=== PATIENT | male | born 1940 | race Caucasian/White ===

== ENCOUNTER 2019-02-01 14:28 | Inpatient (IN) | payer MEDICARE, BC ==
[~2019-02-01] VITALS: Ht 175.3 cm; Wt 81.8 kg
[2019-02-01 15:52] LABS: BASO # 0.1 x10^3/uL (0.0-0.2); BASO % 1 % (0-3); EOS # 0.2 x10^3/uL (0.0-0.7); EOS % 3 % (0-3); HEMATOCRIT 43.2 % (39.0-53.0); HEMOGLOBIN 14.2 g/dL (13.0-17.5); LYMPH # 1.4 x10^3/uL (1.0-4.8); LYMPH % 21 % (24-48); MEAN CORPUSCULAR HEMOGLOBIN 29 pg (25-35); MEAN CORPUSCULAR HGB CONC 33 g/dL (31-37); MEAN CORPUSCULAR VOLUME 88 fL (79-100); MONO # 0.6 x10^3/uL (0.0-1.1); MONO % 9 % (0-9); NEUT # 4.2 x10^3uL (1.8-7.7); NEUT % 66 % (31-73); PLATELET COUNT 166 x10^3/uL (140-400); RED BLOOD COUNT 4.92 x10^6/uL (4.30-5.70); RED CELL DISTRIBUTION WIDTH 14.7 % (11.5-14.5); WHITE BLOOD COUNT 6.4 x10^3/uL (4.0-11.0)
[2019-02-01 16:04] LABS: CALCIUM 9.3 mg/dL (8.5-10.1); CREATININE 1.6 mg/dL (0.7-1.3); MAGNESIUM 1.9 mg/dL (1.8-2.4); POTASSIUM 4.2 mmol/L (3.5-5.1); TOTAL BILIRUBIN 0.4 mg/dL (0.2-1.0); TOTAL PROTEIN 8.1 g/dL (6.4-8.2)
--- NOTE | 2019-02-01 16:12 | PHYS DOC ---
Past History Past Medical History: Dementia, GERD, High Cholesterol, Hypertension, Stroke Past Surgical History: No Surgical History Alcohol Use: None Drug Use: None Adult General Chief Complaint Chief Complaint: ALTERED MENTAL STATUS [facility] HPI Patient is a 78 year old male who presents with his to the emergency department for evaluation of altered mental status. The patient is a very poor historian. Noted history of Alzheimer's dementia. Was brought to the emergency department by his for concerns of increased aggressive behavior. notes that the patient has been more aggressive and agitated which has been worsening over the past 3 weeks. Denies any recent fall or trauma but does not the patient has had history of spontaneous intracranial hemorrhage. Was treated at [facility] In July 2018. The patient is oriented only to self. He is unable to identify his under their appropriate relationship, but rather states that she is his sister. Patient follows with Dr. Crain for primary care. states that they have talked to both Dr. Crain and social work who recommended that the patient consider admission to the senior behavioral health unit here at [facility]. At this time states that they have not contacted anyone at the facility regarding admission. She states that the patient is very a ggressive at home and she feels that he does need to be admitted for inpatient psychiatric care. The patient denies any somatic complaints at this time. Review of Systems Review of Systems Caveat: Patient demented and very poor historian Constitutional: Denies fever or chills [] Eyes: Denies change in visual acuity, redness, or eye pain [] HENT: Denies nasal congestion or sore throat [] Respiratory: Denies cough or shortness of breath [] Cardiovascular: No additional information not addressed in HPI [] GI: Denies abdominal pain, nausea, vomiting, bloody stools or diarrhea [] : Denies dysuria or hematuria [] Musculoskeletal: Denies back pain or joint pain [] Integument: Denies rash or skin lesions [] Neurologic: Denies headache, focal weakness or sensory changes [] All other systems were reviewed and found to be within normal limits, except as documented in this note. Allergies Allergies Allergies Coded Allergies Type Severity Reaction Last Updated Verified No Known Drug Allergies 02/01/19 No Physical Exam Physical Exam Constitutional: Alert, afebrile, appears anxious but cooperative. [] HENT: Normocephalic, atraumatic, bilateral external ears normal, oropharynx moist, no oral exudates, nose normal. [] Eyes: PERRLA, EOMI, conjunctiva normal, no discharge. [] Neck: Normal range of motion, no tenderness, supple, no stridor. [] Cardiovascular:Heart rate regular rhythm, no murmur [] Lungs & Thorax: Bilateral breath sounds clear to auscultation [] Abdomen: Bowel sounds normal, soft, no tenderness, no masses, no pulsatile masses. [] Skin: Warm, dry, no erythema, no rash. [] Back: No tenderness, no CVA tenderness. [] Extremities: No tenderness, no cyanosis, no clubbing, ROM intact, no edema. [] Neurologic: Alert and oriented to person only, normal motor function, normal sensory function, no focal deficits noted. [] Current Patient Data Vital Signs Vital Signs Date Time Temp Pulse Resp B/P (MAP) Pulse Ox O2 Delivery O2 Flow Rate FiO2 02/01/19 14:45 97.5 83 20 94 Room Air Lab Results Laboratory Tests Test 02/01/19 15:30 White Blood Count 6.4 x10^3/uL (4.0-11.0) Red Blood Count 4.92 x10^6/uL (4.30-5.70) Hemoglobin 14.2 g/dL (13.0-17.5) Hematocrit 43.2 % (39.0-53.0) Mean Corpuscular Volume 88 fL (79-100) Mean Corpuscular Hemoglobin 29 pg (25-35) Mean Corpuscular Hemoglobin Concent 33 g/dL (31-37) Red Cell Distribution Width 14.7 % (11.5-14.5) H Platelet Count 166 x10^3/uL (140-400) Neutrophils (%) (Auto) 66 % (31-73) Lymphocytes (%) (Auto) 21 % (24-48) L Monocytes (%) (Auto) 9 % (0-9) Eosinophils (%) (Auto) 3 % (0-3) Basophils (%) (Auto) 1 % (0-3) Neutrophils # (Auto) 4.2 x10^3uL (1.8-7.7) Lymphocytes # (Auto) 1.4 x10^3/uL (1.0-4.8) Monocytes # (Auto) 0.6 x10^3/uL (0.0-1.1) Eosinophils # (Auto) 0.2 x10^3/uL (0.0-0.7) Basophils # (Auto) 0.1 x10^3/uL (0.0-0.2) Sodium Level 142 mmol/L (136-145) Potassium Level 4.2 mmol/L (3.5-5.1) Chloride Level 103 mmol/L (98-107) Carbon Dioxide Level 28 mmol/L (21-32) Anion Gap 11 (6-14) Blood Urea Nitrogen 26 mg/dL (8-26) Creatinine 1.6 mg/dL (0.7-1.3) H Estimated GFR (Cockcroft-Gault) 42.0 BUN/Creatinine Ratio 16 (6-20) Glucose Level 135 mg/dL (70-99) H Calcium Level 9.3 mg/dL (8.5-10.1) Magnesium Level 1.9 mg/dL (1.8-2.4) Total Bilirubin 0.4 mg/dL (0.2-1.0) Aspartate Amino Transferase (AST) 15 U/L (15-37) Alanine Aminotransferase (ALT) 21 U/L (16-63) Alkaline Phosphatase 87 U/L (46-116) Total Protein 8.1 g/dL (6.4-8.2) Albumin 4.0 g/dL (3.4-5.0) Albumin/Globulin Ratio 1.0 (1.0-1.7) EKG EKG Interpreted by me: Heart rate 69, sinus rhythm, normal intervals, no acute ST/T- wave abnormalities present[] Radiology/Procedures Radiology/[place] [address] IMAGING REPORT Signed PATIENT: KHAI WALLS ACCOUNT: [id number] : 1940 LOCATION: ER AGE: 78 SEX: M EXAM STATUS: REG ER ORD. PHYSICIAN: MINESH WILLSON MD REASON: history of spontaneous ICH, altered mental status PROCEDURE: CT HEAD WO CONTRAST PQRS Compliance Statement: One or more of the following individualized dose reduction techniques were utilized for this examination: 1. Automated exposure control 2. Adjustment of the mA and/or kV according to patient size 3. Use of iterative reconstruction technique CT head without contrast 02/01/2019 3:42 PM INDICATION: History of spontaneous intracranial hemorrhage. Altered mental status COMPARISON: None available TECHNIQUE: Multiple axial CT images of the head were obtained from skull base through the vertex without intravenous contrast. FINDINGS: Head: Ventricles, sulci and basal cisterns are prominent compatible with mild generalized cerebral volume loss. Low-attenuation in the periventricular white matter is suggestive of chronic small vessel ischemic changes. Remote ischemic changes are identified in the medial left occipital lobe with associated encephalomalacia. There is a dilated perivascular space in inferior left basal ganglia. There is no hydrocephalus. Buckner-white matter differentiation is normal. There is no acute intracranial hemorrhage. There is no mass, mass effect or midline shift. Posterior fossa is normal in appearance. Visualized portions of the orbits are normal. Mild mucosal thickening involving the left ethmoid air cells. Mastoid air cells are well aerated. Scalp and calvaria are normal. IMPRESSION: No acute intracranial hemorrhage. Remote ischemic changes are identified in the medial left occipital lobe. Mild generalized vertebral volume loss. Low-attenuation in the periventricular white matter is suggestive of chronic small vessel ischemic changes. Electronically signed by: Ann-Marie Travis MD (02/01/2019 4:11 PM) [facility] DICTATED AND SIGNED BY: ANN-MARIE TRAVIS MD DATE: 02/01/19 1611 CC: MINESH WILLSON MD; STEFF CRAIN MD ~ [] Course & Med Decision Making Course & Med Decision Making Pertinent Labs and Imaging studies reviewed. (See chart for details) Patient medically cleared for psychiatric evaluation. At time of sign out, the patient is currently undergoing evaluation a telemetry psychiatry. Care of patient signed out to Dr. Alvarez at 1811.[] Dragon Disclaimer Dragon Disclaimer This electronic medical record was generated, in whole or in part, using a voice recognition dictation system. Departure Departure: Impression: Primary Impression: Alzheimer's dementia Disposition: 01 HOME/RESIDENCE PRIOR TO ADM Condition: STABLE Referrals: STEFF CRAIN MD (PCP) Problem Qualifiers Primary Impression: Alzheimer's dementia Alzheimer's disease onset: unspecified onset Dementia behavioral disturbance: with behavioral disturbance Qualified Codes: G30.9 - Alzheimer's disease, unspecified; F02.81 - Dementia in other diseases classified elsewhere with behavioral disturbance MINESH WILLSON MD Feb 01, 2019 16:12
--- NOTE | 2019-02-01 18:43 | EKG ---
[address] [address] Test Date: 2019-02-01 Test Time: 14:45:19 Pat Name: KHAI WALLS Department: Room: Gender: M Junior Business Analyst: : 1940 Requested By: MINESH WILLSON Order Number: [id number] Reading MD: Keshawn Dunlap MD Measurements Intervals [place] Rate: 69 P: 36 IN: 198 QRS: 5 QRSD: 82 T: 28 QT: 370 QTc: 398 Interpretive Statements SINUS RHYTHM Electronically Signed On 02-15-2019 0:38:38 CDT by Keshawn Dunlap MD
[2019-02-01 18:46] LABS: BILIRUBIN,URINE NEG (NEG); CLARITY,URINE CLEAR; COLOR,URINE YELLOW; GLUCOSE,URINE NEG (NEG); NITRITE,URINE NEG (NEG); RBC,URINE 0 /HPF (0-2); UROBILINOGEN,URINE 0.2 mg/dL (0.2 mg/dL)
[2019-02-01 18:47] LABS: BACTERIA,URINE 0 /HPF (0-FEW); WBC,URINE RARE /HPF (0-4)
[2019-02-01 21:37] VITALS: BP 193/78
[2019-02-01] MEDS ORDERED: AMLO5TAB10 PO (22:23)
[2019-02-01] MEDS ORDERED: LEVE500T56 PO (22:23)
[2019-02-01] MEDS ORDERED: DONE10TA7 PO (22:23)
[2019-02-01] MEDS ORDERED: OMEP40CA5 PO (22:23)
[2019-02-01] MEDS ORDERED: LOSA50TA86 PO (22:23)
[2019-02-01] MEDS ORDERED: MEMA10TA PO (22:23)
[2019-02-01] MEDS ORDERED: ATOR10TA60 PO (22:23)
[2019-02-01] MEDS ORDERED: MAGNESIUM HYDROXIDE 2,400 MG/30 ML ORAL.SUSP. PO PRN (22:30)
[2019-02-01] MEDS ORDERED: METHYL SALICYLATE/MENTHOL TOPICAL OINTMENT 29GM TUBE. TP PRN (22:30)
[2019-02-01] MEDS ORDERED: MAG HYDROX/AL HYDROX/SIMETH 30 ML ORAL.SUSP PO PRN (22:30)
[2019-02-01] MEDS ORDERED: ACETAMINOPHEN 325 MG TABLET PO PRN (22:30)
[2019-02-02 06:10] VITALS: BP 129/77
[2019-02-02] MEDS: levETIRAcetam 500 MG TABLET PO SCH ×2 (08:51→20:15)
[2019-02-02] MEDS: amLODIPine BESYLATE 5 MG TABLET PO SCH (08:51)
[2019-02-02] MEDS: DONEPEZIL HCL 10 MG TABLET PO SCH (08:52)
[2019-02-02] MEDS: LOSARTAN 50 MG TABLET. PO SCH (08:52)
[2019-02-02] MEDS: MEMANTINE 10 MG TABLET. PO SCH ×2 (08:52→20:15)
[2019-02-02] MEDS: PANTOPRAZOLE 40 MG TABLET. PO SCH ×2 (08:52→20:15)
[2019-02-02 16:09] VITALS: BP 132/78
[2019-02-02 16:27] LABS: THYROID STIM HORMONE (TSH) 2.625 uIU/mL (0.358-3.740)
[2019-02-02 20:07] LABS: THYROXINE 7.2 ug/dL (4.5-12.0)
[2019-02-02] MEDS: ATORVASTATIN CALCIUM 10 MG TABLET. PO SCH (20:15)
--- NOTE | 2019-02-02 22:25 | PDOC ---
Exam Note: Derick Note: Please also refer to the separate dictated note~for this date of service dictated separately.~Patient seen individually. Discussed the patient with Nursing staff reviewed the chart.~Reviewed interim history and current functioning. Reviewed vital signs,~Labs/ Radiology~and current medications noted below. Continue current treatment with the changes noted in the dictated addendum note Assessment: Vital Signs/I&O: Vital Signs Date Time Temp Pulse Resp B/P (MAP) Pulse Ox O2 Delivery O2 Flow Rate FiO2 02/02/19 16:09 97.3 88 18 132/78 (96) 95 02/02/19 06:10 Room Air Current Medications: Meds: Current Medications Medications (Trade) Dose Ordered Sig/Zachary Route PRN Reason Start Time Stop Time Status Last Admin Dose Admin Amlodipine Besylate (Norvasc) 5 mg DAILY PO 02/02/19 09:00 02/02/19 08:52 Atorvastatin Calcium (Lipitor) 10 mg QHS PO 02/02/19 21:00 02/02/19 20:16 Donepezil HCl (Aricept) 10 mg DAILY PO 02/02/19 09:00 02/02/19 08:52 Levetiracetam (Keppra) 500 mg BID PO 02/02/19 09:00 02/02/19 20:16 Losartan Potassium (Cozaar) 50 mg DAILY PO 02/02/19 09:00 02/02/19 08:52 Memantine (Namenda) 10 mg BID PO 02/02/19 09:00 02/02/19 20:16 Pantoprazole Sodium (Protonix) 40 mg BID PO 02/02/19 09:00 02/02/19 20:16 I have reviewed the current psychotropics carefully including drug interactions. Risk benefit ratio favors no change other than as noted in my dictated progress note. Diagnosis: Problems: (1) Anxiety disorder (2) Dementia in Alzheimer's disease with delusions (3) Dementia in Alzheimer's disease with depression (4) Dementia, vascular, with delusions (5) Dementia, vascular, with depression (6) Impulse control disorder JANIA GUZMÁN MD Feb 02, 2019 22:25
[2019-02-03 02:07] LABS: HEMOGLOBIN A1C 6.1 % (4.8-5.6)
[2019-02-03 05:58] VITALS: BP 144/80
[2019-02-03] MEDS: DONEPEZIL HCL 10 MG TABLET PO SCH (07:45)
[2019-02-03] MEDS: MEMANTINE 10 MG TABLET. PO SCH (07:46)
[2019-02-03] MEDS: amLODIPine BESYLATE 5 MG TABLET PO SCH (07:46)
[2019-02-03] MEDS: LOSARTAN 50 MG TABLET. PO SCH (07:46)
[2019-02-03] MEDS: PANTOPRAZOLE 40 MG TABLET. PO SCH ×2 (07:47→20:40)
[2019-02-03] MEDS: levETIRAcetam 500 MG TABLET PO SCH ×2 (07:47→20:40)
--- NOTE | 2019-02-03 10:54 | HP ---
ADMIT DATE: 02/01/2019 ADMISSION HISTORY AND EVALUATION This is a late entry, date of service 02/02/2019, covers elements not covered in my initial note 02/02/2019. SUBJECTIVE: I met with the patient evening of 02/02/2019 and previously discussed with nursing staff on 02/01/2019 after the patient presented to the Emergency Room with family on account of increased aggression within the context of his dementia. He had threatened to kill the respite care helpers. The was no longer able to take care of him, felt extremely unsafe of her own safety and brought him to the ER. He was evaluated and then referred for inpatient psychiatric stabilization, I believe following a tele psychiatry consultation. CHIEF COMPLAINT: "No." The patient is extremely confused, oriented just to himself, not able to give me a very coherent history and I had to gather all of this from conversation with nursing staff, his current and past records. HISTORY OF PRESENT ILLNESS: The patient has a history of dementia, probably Alzheimer, vascular, status post CVA. He has been living at home with his with respite care helpers assisting. He has been more paranoid, delusional, aggressive, more so for the past several weeks, but much worse within the last 24-48 hours. Behaviors have been dangerous, unmanageable, resulting in this referral. He has had sleep and appetite changes. No clear history of bipolar disorder. PAST PSYCHIATRIC HISTORY: As above. MEDICAL HISTORY: Status post CVA, seizure disorder, hypertension, hyperlipidemia. ACCU-CHEKS: None. DIET: Regular. Takes medications whole. Ambulates up ad sukhdeep. UA negative in the ER. CODE STATUS: Full code. DRUG ALLERGIES: Negative. CURRENT PSYCHOTROPICS: Namenda 10 mg b.i.d., Aricept 10 mg a day, Keppra 500 mg b.i.d., Zyprexa p.r.n. FAMILY HISTORY: Noncontributory. SOCIAL HISTORY: No history of alcohol, drug abuse, physical, sexual or elder abuse. He is not known to be a perpetrator. REACTION TO HOSPITALIZATION: The patient oblivious of this. ASSETS: Supportive family. REVIEW OF SYSTEMS: No CV, , pulmonary, eye, ENT system symptoms on review. Reliability poor. MENTAL STATUS EXAMINATION: Oriented to himself. Insight, judgment, recent and remote memory, attention, concentration, fund of knowledge poor, consistent with his diagnosis. IMPRESSION: Major neurocognitive disorder, probably vascular, Alzheimer's with delusion, depression, behavioral disturbance; anxiety disorder, unspecified; impulse control disorder, unspecified. Rest diagnoses as noted above. PLAN: Admit to Gerops[facility]iatry Unit at [facility]. I will see the patient daily individually from a psychiatric standpoint. Medical followup with Dr. Prajapati. Continue the patient on his current psychotropics. Observe baseline. Consider tapering and stopping the Keppra since this could worsen his agitation and substituting it with Depakote. We will have a Neurology consult with Dr. Griggs as indicated. Further changes will be made post baseline assessment. Estimated length of stay 10-12 days. DISPOSITION: Plans to jail [facility] when stable. MAN Aryan GUZMÁN MD DR: ZAIRA/joe JOB#: [id number] / [id number]
[2019-02-03 15:59] VITALS: BP 148/82
[2019-02-03] MEDS: CHOLECALCIFEROL (VITAMIN D3) 50,000 UNIT CAPSULE PO SCH (20:39)
[2019-02-03] MEDS: ATORVASTATIN CALCIUM 10 MG TABLET. PO SCH (20:40)
--- NOTE | 2019-02-03 22:12 | PDOC ---
Exam Note: Derick Note: Please also refer to the separate dictated note~for this date of service dictated separately.~Patient seen individually. Discussed the patient with Nursing staff reviewed the chart.~Reviewed interim history and current functioning. Reviewed vital signs,~Labs/ Radiology~and current medications noted below. Continue current treatment with the changes noted in the dictated addendum note Assessment: Vital Signs/I&O: Vital Signs Date Time Temp Pulse Resp B/P (MAP) Pulse Ox O2 Delivery O2 Flow Rate FiO2 02/03/19 15:59 97.4 92 18 148/82 (104) 96 Room Air I & O 02/02/19 02/02/19 02/03/19 14:59 22:59 06:59 Intake Total 960 ml 240 ml 120 ml Balance 960 ml 240 ml 120 ml Current Medications: Meds: Current Medications Medications (Trade) Dose Ordered Sig/Zachary Route PRN Reason Start Time Stop Time Status Last Admin Dose Admin Vitamin D (Vitamin D3) 50,000 unit WEEKLY PO 02/03/19 18:30 02/03/19 20:41 I have reviewed the current psychotropics carefully including drug interactions. Risk benefit ratio favors no change other than as noted in my dictated progress note. Diagnosis: Problems: (1) Anxiety disorder (2) Dementia in Alzheimer's disease with delusions (3) Dementia in Alzheimer's disease with depression (4) Dementia, vascular, with delusions (5) Dementia, vascular, with depression (6) Impulse control disorder JANIA GUZMÁN MD Feb 03, 2019 22:12
--- NOTE | 2019-02-04 03:55 | CONS ---
DATE OF CONSULTATION: REASON FOR CONSULTATION: Medical management. HISTORY OF PRESENT ILLNESS: The patient is a 78-year-old male patient who presented to the Emergency Room with the family on account of increased aggression within the context of his dementia. He apparently threatened to kill the respite care helpers and and his was no longer able to take care of him, felt extremely unsafe for her safety and he was brought to the Emergency Room. He was evaluated and as he was medically stable, he was admitted for inpatient psychiatric stabilization. When I questioned him this afternoon, he stated that things are not going well for him, but he could not be more specific. PAST MEDICAL HISTORY: Significant for cerebrovascular accident, seizure disorder, hypertension, hyperlipidemia. PAST PSYCHIATRIC HISTORY: Significant for dementia, probably Alzheimer, vascular, status post CVA. He apparently has been living at home with his with respite care helpers assisting. He has been more paranoid, delusional, aggressive, worse over the past several weeks, but much worse within the last 24-48 hours. As his behavior is dangerous, unmanageable, he was admitted to this unit for inpatient psychiatric stabilization. PAST SURGICAL HISTORY: Unremarkable. ALLERGIES: He has no known drug allergies. MEDICATIONS: He is currently on the following medications: He is on Aricept 10 mg once a day, atorvastatin calcium 10 mg at bedtime, amlodipine besylate 5 mg daily. He is on losartan potassium 50 mg once a day, levetiracetam for Keppra 500 mg twice a day. He is also on Namenda 10 mg twice a day, omeprazole 40 mg twice a day. PHYSICAL EXAMINATION: GENERAL: When I saw him this afternoon, he was sitting in his chair comfortably, in no apparent distress. He has episodes of shaking and tremulousness; however, he was pale, but no jaundice, cyanosis or thyromegaly. No jugular venous distention. No limb edema. VITAL SIGNS: Her heart rate was 92, blood pressure 148/82, temperature was 97.4, respiratory rate was 18 and oxygen saturation was 96%. HEAD, EYES, EARS, NOSE AND THROAT: Showed normocephalic, atraumatic. NECK: Supple. HEART: Showed normal first and second heart sounds with no gallop, rub or murmur. CHEST: Clear to auscultation. No crepitation or rhonchi. ABDOMEN: Distended, soft, nontender. NEUROLOGIC: He was demented, but without any obvious lateralizing sign. He was able to ambulate without assistance or assistive devices, although he has what seemed to be tremors that are not constant. LABORATORY DATA: Showed a white cell count of 6400, hemoglobin 14, hematocrit 43, MCV 88 and platelet count of 166,000. His chemistry showed a serum sodium 142, potassium 4.2, chloride 103, bicarbonate 28, anion gap of 11, BUN 26, creatinine 1.6, estimated GFR was 42 mL per minute. His glucose was 135. His hemoglobin A1c was 6.1%. Calcium was 9.3, magnesium was 1.9. Total bilirubin, AST, ALT, alkaline phosphatase were normal. Total protein was 8.1 and albumin was 4. His serum triglycerides were 363, cholesterol 133, LDL was 26, VLDL was 72, HDL cholesterol was 35 and the ratio was 3. His TSH was normal at 2.625, and total T4 and total T3 were within normal ranges. His 25-hydroxyvitamin D was low and his serum iron was 49, TIBC was 264 and iron saturation was 19%. His urinalysis showed the urine was yellow, clear with a pH of 5.5, specific gravity 1.010. The urine was negative for protein, glucose, ketones. There was trace of blood, negative for nitrites and bilirubin, was negative for leukocyte esterase, 0 rbc's, rare wbc's, and no bacteria. His treponema pallidum antibodies were nonreactive. His CT scan of the head showed that the patient's ventricles and sulci and basal cisterns are prominent compatible with mild generalized cerebral volume loss, low attenuation in the periventricular white matter is suggestive of chronic small vessel ischemic changes, remote ischemic changes are identified in the medial left occipital lobe with associated encephalomalacia. There is a dilated perivascular space in the inferior left basal ganglia. There is no hydrocephalus. Buckner-white matter differentiation is normal. There is no acute intracranial hemorrhage, no mass or mass effect or midline shift. His posterior fossa is normal in appearance. Visualized portions of the orbits are normal. He has mild mucosal thickening involving the left ethmoid air cells. Mastoid air cells are well aerated. Scalp and calvaria are normal. SUMMARY: From a medical point of view, the patient has obesity, hypertension, hyperlipidemia, also has chronic kidney disease and vitamin D deficiency. His serum creatinine is 1.6. All in all, the patient seems to be medically stable. He has just some form of tremors or myoclonic jerks that are irregular and sporadic. PLAN: My plan is to consult Dr. Griggs to see if this represents any perhaps like Creutzfeldt-Km disease. We will continue obviously with all his medications. We will follow his labs closely and make any necessary recommendation. Thank you, Dr. Marei for allowing me to participate in the care of this patient. KALPANA TAYLOR MD DR: SIDDHARTHA/joe JOB#: [id number] / [id number]
[2019-02-04 06:25] VITALS: BP 159/86
[2019-02-04] MEDS: PANTOPRAZOLE 40 MG TABLET. PO SCH ×2 (08:04→20:26)
[2019-02-04] MEDS: LOSARTAN 50 MG TABLET. PO SCH (08:05)
[2019-02-04] MEDS: levETIRAcetam 500 MG TABLET PO SCH ×2 (08:05→20:26)
[2019-02-04] MEDS: amLODIPine BESYLATE 5 MG TABLET PO SCH (08:06)
[2019-02-04] MEDS: SERTRALINE 25 MG TABLET. PO SCH (08:07)
[2019-02-04 16:30] VITALS: BP 110/63
[2019-02-04] MEDS: ATORVASTATIN CALCIUM 10 MG TABLET. PO SCH (20:26)
--- NOTE | 2019-02-04 23:08 | PDOC ---
Exam Note: Derick Note: Please also refer to the separate dictated note~for this date of service dictated separately.~Patient seen individually. Discussed the patient with Nursing staff reviewed the chart.~Reviewed interim history and current functioning. Reviewed vital signs,~Labs/ Radiology~and current medications noted below. Continue current treatment with the changes noted in the dictated addendum note Assessment: Vital Signs/I&O: Vital Signs Date Time Temp Pulse Resp B/P (MAP) Pulse Ox O2 Delivery O2 Flow Rate FiO2 02/04/19 16:30 98.4 69 16 110/63 (79) 95 02/04/19 06:25 Room Air I & O 02/03/19 02/03/19 02/04/19 15:00 23:00 07:00 Intake Total 960 ml 360 ml Balance 960 ml 360 ml Current Medications: Meds: Current Medications Medications (Trade) Dose Ordered Sig/Zachary Route PRN Reason Start Time Stop Time Status Last Admin Dose Admin Sertraline HCl (Zoloft) 25 mg DAILY PO 02/04/19 09:00 02/07/19 08:59 02/04/19 08:07 I have reviewed the current psychotropics carefully including drug interactions. Risk benefit ratio favors no change other than as noted in my dictated progress note. Diagnosis: Problems: (1) Anxiety disorder (2) Dementia in Alzheimer's disease with delusions (3) Dementia in Alzheimer's disease with depression (4) Dementia, vascular, with delusions (5) Dementia, vascular, with depression (6) Impulse control disorder JANIA GUZMÁN MD Feb 04, 2019 23:08
[2019-02-05 05:58] VITALS: BP 135/79
[2019-02-05] MEDS: LOSARTAN 50 MG TABLET. PO SCH (07:44)
[2019-02-05] MEDS: levETIRAcetam 500 MG TABLET PO SCH ×2 (07:45→19:44)
[2019-02-05] MEDS: amLODIPine BESYLATE 5 MG TABLET PO SCH (07:45)
[2019-02-05] MEDS: PANTOPRAZOLE 40 MG TABLET. PO SCH ×2 (07:45→19:44)
[2019-02-05] MEDS: SERTRALINE 25 MG TABLET. PO SCH (07:45)
[2019-02-05 16:24] VITALS: BP 127/68
[2019-02-05] MEDS: ATORVASTATIN CALCIUM 10 MG TABLET. PO SCH (19:44)
--- NOTE | 2019-02-05 22:28 | PDOC ---
Exam Note: Derick Note: Please also refer to the separate dictated note~for this date of service dictated separately.~Patient seen individually. Discussed the patient with Nursing staff reviewed the chart.~Reviewed interim history and current functioning. Reviewed vital signs,~Labs/ Radiology~and current medications noted below. Continue current treatment with the changes noted in the dictated addendum note Assessment: Vital Signs/I&O: Vital Signs Date Time Temp Pulse Resp B/P (MAP) Pulse Ox O2 Delivery O2 Flow Rate FiO2 02/05/19 16:24 97.4 80 18 127/68 (87) 96 02/05/19 05:58 Room Air I & O 02/04/19 02/04/19 02/05/19 15:00 23:00 07:00 Intake Total 720 ml 240 ml Balance 720 ml 240 ml Current Medications: I have reviewed the current psychotropics carefully including drug interactions. Risk benefit ratio favors no change other than as noted in my dictated progress note. Diagnosis: Problems: (1) Anxiety disorder (2) Dementia in Alzheimer's disease with delusions (3) Dementia in Alzheimer's disease with depression (4) Dementia, vascular, with delusions (5) Dementia, vascular, with depression (6) Impulse control disorder JANIA GUZMÁN MD Feb 05, 2019 22:28
--- NOTE | 2019-02-06 01:46 | PN ---
DATE: 02/03/2019 PSYCHIATRIC PROGRESS NOTE This late entry 02/03/2019 covers elements not covered in my initial note. SUBJECTIVE: I met with the patient in the evening of 02/03/2019. The patient slept 7-1/2 hours previous night. He is disorganized, compliant with medications, not agitated. He is nevertheless anxious, restless, but redirectable. REVIEW OF SYSTEMS: No CV, , pulmonary, eye, ENT system symptoms on review. Reliability poor. MENTAL STATUS EXAM: Oriented to himself. Insight, judgment, recent and remote memory, attention, concentration, fund of knowledge poor, consistent with his diagnosis mentioned in my initial note. PLAN: Continue current psychotropics. At this stage of his dementia, Aricept and Namenda have probably very limited benefits and we will stop it. We will start Zoloft 25 mg a day, increasing in 3 days to 50 mg a day. Maintain Zyprexa p.r.n., consider tapering the Keppra at some point since it could be increasing his agitation. If needed, we will substitute with Depakote. We will initially make the changes with the Namenda, Aricept, and Zoloft and then decide in a few days. JANIA GUZMÁN MD DR: ZAIRA/joe JOB#: [id number] / [id number]
[2019-02-06 05:41] VITALS: BP 121/70
[2019-02-06] MEDS: levETIRAcetam 500 MG TABLET PO SCH ×2 (09:17→21:15)
[2019-02-06] MEDS: SERTRALINE 25 MG TABLET. PO SCH (09:17)
[2019-02-06] MEDS: PANTOPRAZOLE 40 MG TABLET. PO SCH ×2 (09:17→21:16)
[2019-02-06] MEDS: amLODIPine BESYLATE 5 MG TABLET PO SCH (09:18)
[2019-02-06] MEDS: LOSARTAN 50 MG TABLET. PO SCH (09:18)
[2019-02-06 16:06] VITALS: BP 102/50
[2019-02-06] MEDS: ATORVASTATIN CALCIUM 10 MG TABLET. PO SCH (21:15)
--- NOTE | 2019-02-07 00:51 | PN ---
DATE: 02/05/2019 PSYCHIATRIC PROGRESS NOTE This late entry, 02/05, covers elements not covered in my initial note. SUBJECTIVE: I met with the patient in the evening of 02/05. The patient slept 6-3/4 hours previous night. He seems to do worse with too much stimuli, but he is not aggressive. REVIEW OF SYSTEMS: No CV, , pulmonary, eye, ENT system symptoms on review. Reliability poor. MENTAL STATUS EXAM: Oriented to himself. Insight, judgment, recent and remote memory, attention, concentration, fund of knowledge poor, consistent with his diagnosis. IMPRESSION: Major neurocognitive disorder; Alzheimer, vascular with delusion; depression; behavioral disturbance; anxiety disorder, unspecified; impulse control disorder, unspecified. PLAN: No change from initial note. Continue current psychotropics. MAN Aryan GUZMÁN MD DR: ZAIRA/joe JOB#: [id number] / [id number]
--- NOTE | 2019-02-07 05:03 | PN ---
DATE: 02/04/2019 PSYCHIATRIC PROGRESS NOTE This late entry 02/04/2019 covers elements not covered in my initial note. SUBJECTIVE: I met with the patient in the evening of 02/04/2019. The patient slept 6-1/2 hours previous night. He has been agitated with shower, had 1 episode of behavioral dyscontrol at that time. Otherwise, wandering, confused, takes medications whole. REVIEW OF SYSTEMS: No CV, , pulmonary, eye, ENT system symptoms on review. Reliability poor. MENTAL STATUS EXAM: Oriented to himself. Insight, judgment, recent and remote memory, attention, concentration, fund of knowledge poor, consistent with his diagnosis mentioned in my initial note. PLAN: No change from initial note. MAN Aryan GUZMÁN MD DR: ZAIRA/joe JOB#: [id number] / [id number]
[2019-02-07 05:42] VITALS: BP 142/74
[2019-02-07] MEDS: PANTOPRAZOLE 40 MG TABLET. PO SCH ×2 (08:04→20:45)
[2019-02-07] MEDS: amLODIPine BESYLATE 5 MG TABLET PO SCH (08:04)
[2019-02-07] MEDS: SERTRALINE 25 MG TABLET. PO SCH (08:05)
[2019-02-07] MEDS: LOSARTAN 50 MG TABLET. PO SCH (08:05)
[2019-02-07] MEDS: levETIRAcetam 500 MG TABLET PO SCH ×2 (08:06→20:45)
--- NOTE | 2019-02-07 08:50 | PDOC ---
Exam Note: Derick Note: Late entry for DOS 02/06/2019. Please also refer to the separate dictated note~for this date of service dictated separately.~Patient seen individually. Discussed the patient with Nursing staff reviewed the chart.~Reviewed interim history and current functioning. Reviewed vital signs,~Labs/ Radiology~and current medications noted below. Continue current treatment with the changes noted in the dictated addendum note Assessment: Vital Signs/I&O: Vital Signs Date Time Temp Pulse Resp B/P (MAP) Pulse Ox O2 Delivery O2 Flow Rate FiO2 02/07/19 08:07 74 142/74 02/07/19 05:42 98.3 18 94 Room Air I & O 02/06/19 02/06/19 02/07/19 14:59 22:59 06:59 Intake Total 600 ml 480 ml 120 ml Balance 600 ml 480 ml 120 ml Current Medications: Meds: Current Medications Medications (Trade) Dose Ordered Sig/Zachary Route PRN Reason Start Time Stop Time Status Last Admin Dose Admin Sertraline HCl (Zoloft) 50 mg DAILY PO 02/07/19 09:00 02/07/19 08:07 I have reviewed the current psychotropics carefully including drug interactions. Risk benefit ratio favors no change other than as noted in my dictated progress note. Diagnosis: Problems: (1) Anxiety disorder (2) Dementia in Alzheimer's disease with delusions (3) Dementia in Alzheimer's disease with depression (4) Dementia, vascular, with delusions (5) Dementia, vascular, with depression (6) Impulse control disorder JANIA GUZMÁN MD Feb 07, 2019 08:50
[2019-02-07 15:43] VITALS: BP 164/69
[2019-02-07] MEDS: ATORVASTATIN CALCIUM 10 MG TABLET. PO SCH (20:45)
--- NOTE | 2019-02-07 22:23 | PDOC ---
Exam Note: Derick Note: Please also refer to the separate dictated note~for this date of service dictated separately.~Patient seen individually. Discussed the patient with Nursing staff reviewed the chart.~Reviewed interim history and current functioning. Reviewed vital signs,~Labs/ Radiology~and current medications noted below. Continue current treatment with the changes noted in the dictated addendum note Assessment: Vital Signs/I&O: Vital Signs Date Time Temp Pulse Resp B/P (MAP) Pulse Ox O2 Delivery O2 Flow Rate FiO2 02/07/19 15:43 97.7 90 20 164/69 (100) 98 Room Air I & O 02/06/19 02/06/19 02/07/19 14:59 22:59 06:59 Intake Total 600 ml 480 ml 120 ml Balance 600 ml 480 ml 120 ml Current Medications: Meds: Current Medications Medications (Trade) Dose Ordered Sig/Zachary Route PRN Reason Start Time Stop Time Status Last Admin Dose Admin Sertraline HCl (Zoloft) 50 mg DAILY PO 02/07/19 09:00 02/10/19 07:00 02/07/19 08:07 I have reviewed the current psychotropics carefully including drug interactions. Risk benefit ratio favors no change other than as noted in my dictated progress note. Diagnosis: Problems: (1) Anxiety disorder (2) Dementia in Alzheimer's disease with delusions (3) Dementia in Alzheimer's disease with depression (4) Dementia, vascular, with delusions (5) Dementia, vascular, with depression (6) Impulse control disorder JANIA GUZMÁN MD Feb 07, 2019 22:23
[2019-02-08 06:27] VITALS: BP 140/72
--- NOTE | 2019-02-08 07:25 | PN ---
DATE: 02/06/2019 This late entry 02/06/2019 covers elements not covered in my initial note. SUBJECTIVE: I met with the patient evening of 02/06/2019. The patient slept 7-3/4 hours previous night. He takes his medications whole per nursing report and has been coming out to the milieu, though he is quite oblivious of his surroundings due to his dementia. He has been "snarky" per nursing report, but did attend the exercise groups. REVIEW OF SYSTEMS: No CV, , pulmonary, eye, ENT system symptoms on review. Reliability poor. MENTAL STATUS EXAM: Oriented to himself. Insight, judgment, recent and remote memory, attention, concentration, fund of knowledge poor, consistent with his diagnosis mentioned in my initial note. IMPRESSION: Major neurocognitive disorder; Alzheimer, vascular with delusion; depression; behavioral disturbance; anxiety disorder, unspecified; impulse control disorder, unspecified. PLAN: Continue psychotropics from initial note. Aricept and Namenda have been stopped. Zoloft is being adjusted. He remains on Keppra and Zyprexa p.r.n. May consider Depakote as a mood stabilizer at some point and that may be able to substitute for Keppra as well from a seizure standpoint. JANIA GUZMÁN MD DR: ZAIRA/joe JOB#: [id number] / [id number]
[2019-02-08] MEDS: LOSARTAN 50 MG TABLET. PO SCH (07:49)
[2019-02-08] MEDS: levETIRAcetam 500 MG TABLET PO SCH ×2 (07:49→20:55)
[2019-02-08] MEDS: SERTRALINE 25 MG TABLET. PO SCH (07:50)
[2019-02-08] MEDS: amLODIPine BESYLATE 5 MG TABLET PO SCH (07:50)
[2019-02-08] MEDS: PANTOPRAZOLE 40 MG TABLET. PO SCH ×2 (07:50→20:55)
[2019-02-08 15:47] VITALS: BP 135/70
[2019-02-08] MEDS: ATORVASTATIN CALCIUM 10 MG TABLET. PO SCH (20:55)
--- NOTE | 2019-02-08 21:55 | PDOC ---
Exam Note: Derick Note: Please also refer to the separate dictated note~for this date of service dictated separately.~Patient seen individually. Discussed the patient with Nursing staff reviewed the chart.~Reviewed interim history and current functioning. Reviewed vital signs,~Labs/ Radiology~and current medications noted below. Continue current treatment with the changes noted in the dictated addendum note Assessment: Vital Signs/I&O: Vital Signs Date Time Temp Pulse Resp B/P (MAP) Pulse Ox O2 Delivery O2 Flow Rate FiO2 02/08/19 15:47 97.1 79 16 135/70 (91) 96 02/07/19 15:43 Room Air I & O 02/07/19 02/07/19 02/08/19 14:59 22:59 06:59 Intake Total 960 ml 240 ml 120 ml Balance 960 ml 240 ml 120 ml Current Medications: I have reviewed the current psychotropics carefully including drug interactions. Risk benefit ratio favors no change other than as noted in my dictated progress note. Diagnosis: Problems: (1) Anxiety disorder (2) Dementia in Alzheimer's disease with delusions (3) Dementia in Alzheimer's disease with depression (4) Dementia, vascular, with delusions (5) Dementia, vascular, with depression (6) Impulse control disorder JANIA GUZMÁN MD Feb 08, 2019 21:55
--- NOTE | 2019-02-09 01:43 | PN ---
DATE: 02/07/2019 This late entry of 02/07/2019 covers elements not covered in my initial note. SUBJECTIVE: I met with the patient in the evening of 02/07/2019. The patient slept 7-1/4 hours previous night. He remains confused, has been cooperative, but confused. He gets a little restless, anxious at times. REVIEW OF SYSTEMS: No CV, , pulmonary, eye, ENT system symptoms on review. Reliability poor. MENTAL STATUS EXAM: Oriented to himself. Insight, judgment, recent and remote memory, attention, concentration, fund of knowledge poor, consistent with his diagnosis as mentioned in my initial note. PLAN: No change from initial note, but after he has been on Zoloft 50 mg a day for 3 days, we will increase to 75 mg a day. Maintain Keppra 500 b.i.d., consider Depakote in place of this if irritability persists. Continue Zyprexa p.r.n. JANIA GUZMÁN MD DR: ZAIRA/joe JOB#: [id number] / [id number]
[2019-02-09 06:09] VITALS: BP 159/79
[2019-02-09 06:33] LABS: BASO # 0.1 x10^3/uL (0.0-0.2); BASO % 1 % (0-3); EOS # 0.3 x10^3/uL (0.0-0.7); EOS % 4 % (0-3); HEMATOCRIT 41.1 % (39.0-53.0); HEMOGLOBIN 13.8 g/dL (13.0-17.5); LYMPH # 1.8 x10^3/uL (1.0-4.8); LYMPH % 25 % (24-48); MEAN CORPUSCULAR HEMOGLOBIN 30 pg (25-35); MEAN CORPUSCULAR HGB CONC 34 g/dL (31-37); MEAN CORPUSCULAR VOLUME 88 fL (79-100); MONO # 0.6 x10^3/uL (0.0-1.1); MONO % 9 % (0-9); NEUT # 4.5 x10^3uL (1.8-7.7); NEUT % 62 % (31-73); PLATELET COUNT 168 x10^3/uL (140-400); RED BLOOD COUNT 4.64 x10^6/uL (4.30-5.70); RED CELL DISTRIBUTION WIDTH 14.8 % (11.5-14.5); WHITE BLOOD COUNT 7.3 x10^3/uL (4.0-11.0)
[2019-02-09 06:46] LABS: ALBUMIN 3.8 g/dL (3.4-5.0); CALCIUM 9.5 mg/dL (8.5-10.1); CREATININE 1.6 mg/dL (0.7-1.3); POTASSIUM 4.1 mmol/L (3.5-5.1); TOTAL BILIRUBIN 0.8 mg/dL (0.2-1.0); TOTAL PROTEIN 7.7 g/dL (6.4-8.2)
[2019-02-09] MEDS: amLODIPine BESYLATE 5 MG TABLET PO SCH (08:30)
[2019-02-09] MEDS: SERTRALINE 25 MG TABLET. PO SCH (08:30)
[2019-02-09] MEDS: PANTOPRAZOLE 40 MG TABLET. PO SCH ×2 (08:30→19:52)
[2019-02-09] MEDS: LOSARTAN 50 MG TABLET. PO SCH (08:30)
[2019-02-09] MEDS: levETIRAcetam 500 MG TABLET PO SCH ×2 (08:31→19:54)
[2019-02-09 15:47] VITALS: BP 136/74
[2019-02-09] MEDS: ATORVASTATIN CALCIUM 10 MG TABLET. PO SCH (19:52)
--- NOTE | 2019-02-09 22:06 | PDOC ---
Exam Note: Derick Note: Please also refer to the separate dictated note~for this date of service dictated separately.~Patient seen individually. Discussed the patient with Nursing staff reviewed the chart.~Reviewed interim history and current functioning. Reviewed vital signs,~Labs/ Radiology~and current medications noted below. Continue current treatment with the changes noted in the dictated addendum note Assessment: Vital Signs/I&O: Vital Signs Date Time Temp Pulse Resp B/P (MAP) Pulse Ox O2 Delivery O2 Flow Rate FiO2 02/09/19 15:47 97.3 92 20 136/74 (94) 94 Room Air I & O 02/08/19 02/08/19 02/09/19 15:00 23:00 07:00 Intake Total 560 ml 240 ml 120 ml Balance 560 ml 240 ml 120 ml Labs: Laboratory Tests Test 02/09/19 06:18 White Blood Count 7.3 x10^3/uL (4.0-11.0) Red Blood Count 4.64 x10^6/uL (4.30-5.70) Hemoglobin 13.8 g/dL (13.0-17.5) Hematocrit 41.1 % (39.0-53.0) Mean Corpuscular Volume 88 fL (79-100) Mean Corpuscular Hemoglobin 30 pg (25-35) Mean Corpuscular Hemoglobin Concent 34 g/dL (31-37) Red Cell Distribution Width 14.8 % (11.5-14.5) H Platelet Count 168 x10^3/uL (140-400) Neutrophils (%) (Auto) 62 % (31-73) Lymphocytes (%) (Auto) 25 % (24-48) Monocytes (%) (Auto) 9 % (0-9) Eosinophils (%) (Auto) 4 % (0-3) H Basophils (%) (Auto) 1 % (0-3) Neutrophils # (Auto) 4.5 x10^3uL (1.8-7.7) Lymphocytes # (Auto) 1.8 x10^3/uL (1.0-4.8) Monocytes # (Auto) 0.6 x10^3/uL (0.0-1.1) Eosinophils # (Auto) 0.3 x10^3/uL (0.0-0.7) Basophils # (Auto) 0.1 x10^3/uL (0.0-0.2) Sodium Level 142 mmol/L (136-145) Potassium Level 4.1 mmol/L (3.5-5.1) Chloride Level 104 mmol/L (98-107) Carbon Dioxide Level 31 mmol/L (21-32) Anion Gap 7 (6-14) Blood Urea Nitrogen 23 mg/dL (8-26) Creatinine 1.6 mg/dL (0.7-1.3) H Estimated GFR (Cockcroft-Gault) 42.0 BUN/Creatinine Ratio 14 (6-20) Glucose Level 105 mg/dL (70-99) H Calcium Level 9.5 mg/dL (8.5-10.1) Total Bilirubin 0.8 mg/dL (0.2-1.0) Aspartate Amino Transferase (AST) 15 U/L (15-37) Alanine Aminotransferase (ALT) 25 U/L (16-63) Alkaline Phosphatase 77 U/L (46-116) Total Protein 7.7 g/dL (6.4-8.2) Albumin 3.8 g/dL (3.4-5.0) Albumin/Globulin Ratio 1.0 (1.0-1.7) Current Medications: I have reviewed the current psychotropics carefully including drug interactions. Risk benefit ratio favors no change other than as noted in my dictated progress note. Diagnosis: Problems: (1) Anxiety disorder (2) Dementia in Alzheimer's disease with delusions (3) Dementia in Alzheimer's disease with depression (4) Dementia, vascular, with delusions (5) Dementia, vascular, with depression (6) Impulse control disorder JANIA GUZMÁN MD Feb 09, 2019 22:06
[2019-02-10 05:21] VITALS: BP 120/72
[2019-02-10] MEDS: PANTOPRAZOLE 40 MG TABLET. PO SCH ×2 (07:51→20:00)
[2019-02-10] MEDS: amLODIPine BESYLATE 5 MG TABLET PO SCH (07:51)
[2019-02-10] MEDS: SERTRALINE 25 MG TABLET. PO SCH (07:52)
[2019-02-10] MEDS: LOSARTAN 50 MG TABLET. PO SCH (07:52)
[2019-02-10] MEDS: levETIRAcetam 500 MG TABLET PO SCH ×2 (07:52→20:00)
[2019-02-10] MEDS: CHOLECALCIFEROL (VITAMIN D3) 50,000 UNIT CAPSULE PO SCH (07:55)
[2019-02-10 15:29] VITALS: BP 124/62
[2019-02-10] MEDS: ATORVASTATIN CALCIUM 10 MG TABLET. PO SCH (20:00)
--- NOTE | 2019-02-10 22:11 | PDOC ---
Exam Note: Derick Note: Please also refer to the separate dictated note~for this date of service dictated separately.~Patient seen individually. Discussed the patient with Nursing staff reviewed the chart.~Reviewed interim history and current functioning. Reviewed vital signs,~Labs/ Radiology~and current medications noted below. Continue current treatment with the changes noted in the dictated addendum note Assessment: Vital Signs/I&O: Vital Signs Date Time Temp Pulse Resp B/P (MAP) Pulse Ox O2 Delivery O2 Flow Rate FiO2 02/10/19 15:29 98.4 66 16 124/62 (82) 95 02/10/19 05:21 Room Air I & O 02/09/19 02/09/19 02/10/19 14:59 22:59 06:59 Intake Total 1200 ml 240 ml 120 ml Balance 1200 ml 240 ml 120 ml Current Medications: Meds: Current Medications Medications (Trade) Dose Ordered Sig/Zachary Route PRN Reason Start Time Stop Time Status Last Admin Dose Admin Sertraline HCl (Zoloft) 75 mg DAILY PO 02/10/19 09:00 02/10/19 07:55 I have reviewed the current psychotropics carefully including drug interactions. Risk benefit ratio favors no change other than as noted in my dictated progress note. Diagnosis: Problems: (1) Anxiety disorder (2) Dementia in Alzheimer's disease with delusions (3) Dementia in Alzheimer's disease with depression (4) Dementia, vascular, with delusions (5) Dementia, vascular, with depression (6) Impulse control disorder JANIA GUZMÁN MD Feb 10, 2019 22:11
--- NOTE | 2019-02-11 00:27 | PN ---
DATE: 02/08/2019 This late entry 02/08/2019 covers elements not covered in my initial note. SUBJECTIVE: I met with the patient in the evening of 02/08/2019. The patient slept 7 hours previous night. He is confused, compliant with medications, but not aggressive. REVIEW OF SYSTEMS: No CV, , pulmonary, eye, ENT system symptoms on review. Reliability poor. MENTAL STATUS EXAM: Oriented to himself. Insight, judgment, recent and remote memory, attention, concentration, fund of knowledge poor, consistent with his diagnosis mentioned in my initial note. PLAN: No change from initial note. MAN Aryan GUZMÁN MD DR: ZAIRA/joe JOB#: [id number] / [id number]
--- NOTE | 2019-02-11 02:00 | PN ---
DATE: 02/09/2019 This late entry, 02/09/2019, covers the elements not covered in my initial note. SUBJECTIVE: I met with the patient in the evening of 02/09/2019, staffed at treatment team meeting with the entire team in the morning. The patient's , Gail, attended the conference. He remains confused, withdrawn, slept 7 hours, appetite 75-100%, tries to sit in groups. He has failed home health services in the past, may need nursing placement, but is still wanting to consider having him home. We reviewed his past history of seizures, which is not entirely confirmatory other than possible one episode and he has been on Keppra 500 b.i.d. for about 2 years. We will consult Dr. Griggs, Neurology to see if Keppra can be tapered and we can substitute with Depakote, which might help him behaviorally as well. REVIEW OF SYSTEMS: No CV, , pulmonary, eye, ENT system symptoms on review. Reliability poor. MENTAL STATUS EXAM: Oriented to himself. Insight, judgment, recent and remote memory, attention, concentration, fund of knowledge poor, consistent with his diagnosis. IMPRESSION: Unchanged from initial note. PLAN: No change from initial note other than above. IMPRESSION: Major neurocognitive disorder, Alzheimer vascular with delusion, depression, behavioral disturbance; anxiety disorder, unspecified; impulse control disorder, unspecified. MAN Aryan GUZMÁN MD DR: ZAIRA/joe JOB#: [id number] / [id number]
[2019-02-11 05:40] VITALS: BP 143/72
[2019-02-11] MEDS: levETIRAcetam 500 MG TABLET PO SCH ×2 (08:09→19:24)
[2019-02-11] MEDS: LOSARTAN 50 MG TABLET. PO SCH (08:09)
[2019-02-11] MEDS: SERTRALINE 25 MG TABLET. PO SCH (08:10)
[2019-02-11] MEDS: PANTOPRAZOLE 40 MG TABLET. PO SCH ×2 (08:10→19:24)
[2019-02-11] MEDS: amLODIPine BESYLATE 5 MG TABLET PO SCH (08:10)
[2019-02-11 15:49] VITALS: BP 121/67
[2019-02-11] MEDS: ATORVASTATIN CALCIUM 10 MG TABLET. PO SCH (19:24)
--- NOTE | 2019-02-11 22:00 | PDOC ---
Exam Note: Derick Note: Please also refer to the separate dictated note~for this date of service dictated separately.~Patient seen individually. Discussed the patient with Nursing staff reviewed the chart.~Reviewed interim history and current functioning. Reviewed vital signs,~Labs/ Radiology~and current medications noted below. Continue current treatment with the changes noted in the dictated addendum note Assessment: Vital Signs/I&O: Vital Signs Date Time Temp Pulse Resp B/P (MAP) Pulse Ox O2 Delivery O2 Flow Rate FiO2 02/11/19 15:49 97.7 63 18 121/67 (85) 94 02/10/19 05:21 Room Air I & O 02/10/19 02/10/19 02/11/19 15:00 23:00 07:00 Intake Total 600 ml 480 ml 120 ml Balance 600 ml 480 ml 120 ml Current Medications: I have reviewed the current psychotropics carefully including drug interactions. Risk benefit ratio favors no change other than as noted in my dictated progress note. Diagnosis: Problems: (1) Anxiety disorder (2) Dementia in Alzheimer's disease with delusions (3) Dementia in Alzheimer's disease with depression (4) Dementia, vascular, with delusions (5) Dementia, vascular, with depression (6) Impulse control disorder JANIA GUZMÁN MD Feb 11, 2019 22:00
[2019-02-12 06:39] VITALS: BP 162/72
[2019-02-12] MEDS: amLODIPine BESYLATE 5 MG TABLET PO SCH (07:47)
[2019-02-12] MEDS: PANTOPRAZOLE 40 MG TABLET. PO SCH ×2 (07:47→21:34)
[2019-02-12] MEDS: levETIRAcetam 500 MG TABLET PO SCH ×2 (07:47→21:34)
[2019-02-12] MEDS: LOSARTAN 50 MG TABLET. PO SCH (07:48)
[2019-02-12] MEDS: SERTRALINE 25 MG TABLET. PO SCH (07:48)
[2019-02-12 16:04] VITALS: BP 138/76
--- NOTE | 2019-02-12 21:04 | PDOC ---
Exam Note: Derick Note: Please also refer to the separate dictated note~for this date of service dictated separately.~Patient seen individually. Discussed the patient with Nursing staff reviewed the chart.~Reviewed interim history and current functioning. Reviewed vital signs,~Labs/ Radiology~and current medications noted below. Continue current treatment with the changes noted in the dictated addendum note Assessment: Vital Signs/I&O: Vital Signs Date Time Temp Pulse Resp B/P (MAP) Pulse Ox O2 Delivery O2 Flow Rate FiO2 02/12/19 16:04 97.8 87 19 138/76 (96) 96 Room Air I & O 02/11/19 02/11/19 02/12/19 14:59 22:59 06:59 Intake Total 480 ml 240 ml 240 ml Balance 480 ml 240 ml 240 ml Current Medications: I have reviewed the current psychotropics carefully including drug interactions. Risk benefit ratio favors no change other than as noted in my dictated progress note. Diagnosis: Problems: (1) Anxiety disorder (2) Dementia in Alzheimer's disease with delusions (3) Dementia in Alzheimer's disease with depression (4) Dementia, vascular, with delusions (5) Dementia, vascular, with depression (6) Impulse control disorder JANIA GUZMÁN MD Feb 12, 2019 21:04
[2019-02-12] MEDS: ATORVASTATIN CALCIUM 10 MG TABLET. PO SCH (21:34)
--- NOTE | 2019-02-13 03:31 | PN ---
DATE: 02/11/2019 PSYCHIATRIC PROGRESS NOTE This late entry 02/11/2019 covers elements not covered in my initial note. SUBJECTIVE: I met with the patient in the evening of 02/11/2019. The patient slept 8-1/4 hours previous night. He remains confused but cooperative, does redirect, takes meds with encouragement. He was watching a football game, [employer] versus the [employer] in the evening and when I questioned him on what he was watching, he was unable to tell me the name of the sport but knew [employer] was playing, did not know the name of the team, was not able to discern the score from the television screen. At one point, he was a little aggressively grabbing the hand of another patient, but not beyond what can be explained by his dementia. REVIEW OF SYSTEMS: No CV, , pulmonary, eye, ENT system symptoms on review. Reliability poor. MENTAL STATUS EXAM: Oriented to himself. Insight, judgment, recent and remote memory, attention, concentration, fund of knowledge poor, consistent with his diagnosis mentioned in my initial note. PLAN: No change from initial note. MAN Aryan GUZMÁN MD DR: ZAIRA/joe JOB#: [id number] / [id number]
[2019-02-13 06:37] VITALS: BP 137/80
[2019-02-13] MEDS: levETIRAcetam 500 MG TABLET PO SCH ×2 (07:23→20:00)
[2019-02-13] MEDS: SERTRALINE 25 MG TABLET. PO SCH (07:23)
[2019-02-13] MEDS: PANTOPRAZOLE 40 MG TABLET. PO SCH ×2 (07:23→20:00)
[2019-02-13] MEDS: amLODIPine BESYLATE 5 MG TABLET PO SCH (07:23)
[2019-02-13] MEDS: LOSARTAN 50 MG TABLET. PO SCH (07:23)
--- NOTE | 2019-02-13 14:50 | PN ---
DATE: 02/10/2019 This late entry of 02/10/2019 covers elements not covered in my initial note. SUBJECTIVE: I met with the patient in evening of 02/10/2019. The patient slept 7-3/4 hours previous night. He remains confused, disorganized during the shower. REVIEW OF SYSTEMS: No CV, , pulmonary, eye, ENT system symptoms on review. Reliability poor. MENTAL STATUS EXAM: Oriented to himself. Insight, judgment, recent and remote memory, attention, concentration, fund of knowledge poor, consistent with his diagnosis mentioned in my initial note. PLAN: No change from initial note. MAN Aryan GUZMÁN MD DR: ZAIRA/joe JOB#: [id number] / [id number]
[2019-02-13 15:50] VITALS: BP 102/68
[2019-02-13] MEDS: ATORVASTATIN CALCIUM 10 MG TABLET. PO SCH (20:00)
[2019-02-13] MEDS: MIRTAZAPINE 7.5 MG TABLET. PO SCH (20:01)
--- NOTE | 2019-02-13 22:25 | PDOC ---
Exam Note: Derick Note: Please also refer to the separate dictated note~for this date of service dictated separately.~Patient seen individually. Discussed the patient with Nursing staff reviewed the chart.~Reviewed interim history and current functioning. Reviewed vital signs,~Labs/ Radiology~and current medications noted below. Continue current treatment with the changes noted in the dictated addendum note Assessment: Vital Signs/I&O: Vital Signs Date Time Temp Pulse Resp B/P (MAP) Pulse Ox O2 Delivery O2 Flow Rate FiO2 02/13/19 15:50 97.6 69 18 102/68 (79) 96 02/13/19 06:37 Room Air I & O 02/12/19 02/12/19 02/13/19 15:00 23:00 07:00 Intake Total 600 ml 240 ml 100 ml Balance 600 ml 240 ml 100 ml Current Medications: Meds: Current Medications Medications (Trade) Dose Ordered Sig/Zachary Route PRN Reason Start Time Stop Time Status Last Admin Dose Admin Mirtazapine (Remeron) 7.5 mg QHS PO 02/13/19 21:00 02/13/19 20:02 I have reviewed the current psychotropics carefully including drug interactions. Risk benefit ratio favors no change other than as noted in my dictated progress note. Diagnosis: Problems: (1) Anxiety disorder (2) Dementia in Alzheimer's disease with delusions (3) Dementia in Alzheimer's disease with depression (4) Dementia, vascular, with delusions (5) Dementia, vascular, with depression (6) Impulse control disorder (7) Major neurocognitive disorder (8) Tremor (9) Obesity JANIA GUZMÁN MD Feb 13, 2019 22:25
--- NOTE | 2019-02-14 04:13 | PN ---
DATE: 02/12/2019 This late entry 02/12/2019 covers elements not covered in my initial note. SUBJECTIVE: I met with the patient in the evening of 02/12/2019. The patient slept 6-1/2 hours previous night. He remains disorganized, confused. feels he is little more confused than before. REVIEW OF SYSTEMS: No CV, , pulmonary, eye, ENT system symptoms on review. He has not been aggressive. MENTAL STATUS EXAMINATION: Oriented to himself. Insight, judgment, recent and remote memory, attention, concentration, fund of knowledge poor, consistent with his diagnosis mentioned in my initial note. PLAN: No change from initial note. MAN Aryan GUZMÁN MD DR: ZAIRA/joe JOB#: [id number] / [id number]
[2019-02-14 06:17] VITALS: BP 168/85
[2019-02-14] MEDS: PANTOPRAZOLE 40 MG TABLET. PO SCH ×2 (07:35→20:18)
[2019-02-14] MEDS: LOSARTAN 50 MG TABLET. PO SCH (07:35)
[2019-02-14] MEDS: SERTRALINE 25 MG TABLET. PO SCH (07:36)
[2019-02-14] MEDS: levETIRAcetam 500 MG TABLET PO SCH ×2 (07:36→20:18)
[2019-02-14] MEDS: amLODIPine BESYLATE 5 MG TABLET PO SCH (07:36)
[2019-02-14 16:10] VITALS: BP 104/63
[2019-02-14] MEDS: MIRTAZAPINE 7.5 MG TABLET. PO SCH (20:18)
[2019-02-14] MEDS: ATORVASTATIN CALCIUM 10 MG TABLET. PO SCH (20:18)
--- NOTE | 2019-02-14 21:54 | PDOC ---
Exam Note: Derick Note: Please also refer to the separate dictated note~for this date of service dictated separately.~Patient seen individually. Discussed the patient with Nursing staff reviewed the chart.~Reviewed interim history and current functioning. Reviewed vital signs,~Labs/ Radiology~and current medications noted below. Continue current treatment with the changes noted in the dictated addendum note Assessment: Vital Signs/I&O: Vital Signs Date Time Temp Pulse Resp B/P (MAP) Pulse Ox O2 Delivery O2 Flow Rate FiO2 02/14/19 16:10 97.9 74 16 104/63 (77) 96 02/14/19 06:17 Room Air I & O 02/13/19 02/13/19 02/14/19 14:59 22:59 06:59 Intake Total 600 ml 100 ml Balance 600 ml 100 ml Current Medications: I have reviewed the current psychotropics carefully including drug interactions. Risk benefit ratio favors no change other than as noted in my dictated progress note. Diagnosis: Problems: (1) Anxiety disorder (2) Dementia in Alzheimer's disease with delusions (3) Dementia in Alzheimer's disease with depression (4) Dementia, vascular, with delusions (5) Dementia, vascular, with depression (6) Impulse control disorder (7) Major neurocognitive disorder JANIA GUZMÁN MD Feb 14, 2019 21:54
--- NOTE | 2019-02-15 00:16 | PN ---
DATE: 02/13/2019 PROGRESS NOTE This late entry 02/13/2019 covers elements not covered in my initial note. SUBJECTIVE: I met with the patient evening of 02/13/2019. The patient slept 6-1/2 hours previous night. He remains confused. On further review, he slept 7-1/4 hours previous night, alert to himself, restless. Mood is "up and down" per nursing staff. He follows the staff around the unit. REVIEW OF SYSTEMS: No CV, , pulmonary, eye, ENT system symptoms on review. Reliability poor. MENTAL STATUS EXAM: Oriented to himself. Insight, judgment, recent and remote memory, attention, concentration, fund of knowledge poor, consistent with his diagnosis mentioned in my initial note. PLAN: Start Remeron 7.5 mg p.o. at bedtime for his anxiety, will help with his sleep as well as appetite. Maintain rest of the psychotropics unchanged including Zoloft, which is being adjusted and he remains on Keppra and Zyprexa is p.r.n. JANIA GUZMÁN MD DR: ZAIRA/joe JOB#: [id number] / [id number]
[2019-02-15 05:51] VITALS: BP 147/79
[2019-02-15] MEDS: PANTOPRAZOLE 40 MG TABLET. PO SCH ×2 (08:28→20:28)
[2019-02-15] MEDS: levETIRAcetam 500 MG TABLET PO SCH ×2 (08:29→20:28)
[2019-02-15] MEDS: LOSARTAN 50 MG TABLET. PO SCH (08:29)
[2019-02-15] MEDS: amLODIPine BESYLATE 5 MG TABLET PO SCH (08:29)
[2019-02-15] MEDS: SERTRALINE 25 MG TABLET. PO SCH (08:29)
[2019-02-15 09:41] LABS: BASO # 0.1 x10^3/uL (0.0-0.2); BASO % 1 % (0-3); EOS # 0.2 x10^3/uL (0.0-0.7); EOS % 3 % (0-3); HEMOGLOBIN 12.8 g/dL (13.0-17.5); LYMPH # 1.1 x10^3/uL (1.0-4.8); LYMPH % 18 % (24-48); MEAN CORPUSCULAR HEMOGLOBIN 29 pg (25-35); MEAN CORPUSCULAR HGB CONC 33 g/dL (31-37); MEAN CORPUSCULAR VOLUME 89 fL (79-100); MONO # 0.4 x10^3/uL (0.0-1.1); MONO % 7 % (0-9); NEUT # 4.4 x10^3uL (1.8-7.7); NEUT % 71 % (31-73); PLATELET COUNT 159 x10^3/uL (140-400); RED BLOOD COUNT 4.38 x10^6/uL (4.30-5.70); RED CELL DISTRIBUTION WIDTH 14.8 % (11.5-14.5); WHITE BLOOD COUNT 6.1 x10^3/uL (4.0-11.0)
[2019-02-15 10:00] LABS: ALBUMIN 3.4 g/dL (3.4-5.0); CREATININE 1.7 mg/dL (0.7-1.3); GFR 39.2; POTASSIUM 4.3 mmol/L (3.5-5.1); TOTAL BILIRUBIN 0.7 mg/dL (0.2-1.0); TOTAL PROTEIN 6.9 g/dL (6.4-8.2)
[2019-02-15 15:50] VITALS: BP 160/64
[2019-02-15] MEDS: ATORVASTATIN CALCIUM 10 MG TABLET. PO SCH (20:28)
[2019-02-15] MEDS: MIRTAZAPINE 7.5 MG TABLET. PO SCH (20:28)
--- NOTE | 2019-02-15 21:28 | PDOC ---
Exam Note: Derick Note: Please also refer to the separate dictated note~for this date of service dictated separately.~Patient seen individually. Discussed the patient with Nursing staff reviewed the chart.~Reviewed interim history and current functioning. Reviewed vital signs,~Labs/ Radiology~and current medications noted below. Continue current treatment with the changes noted in the dictated addendum note Assessment: Vital Signs/I&O: Vital Signs Date Time Temp Pulse Resp B/P (MAP) Pulse Ox O2 Delivery O2 Flow Rate FiO2 02/15/19 15:50 97.2 68 16 160/64 (96) 98 02/14/19 06:17 Room Air I & O 02/14/19 02/14/19 02/15/19 15:00 23:00 07:00 Intake Total 840 ml 600 ml Balance 840 ml 600 ml Labs: Laboratory Tests Test 02/15/19 09:14 White Blood Count 6.1 x10^3/uL (4.0-11.0) Red Blood Count 4.38 x10^6/uL (4.30-5.70) Hemoglobin 12.8 g/dL (13.0-17.5) L Hematocrit 39.0 % (39.0-53.0) Mean Corpuscular Volume 89 fL (79-100) Mean Corpuscular Hemoglobin 29 pg (25-35) Mean Corpuscular Hemoglobin Concent 33 g/dL (31-37) Red Cell Distribution Width 14.8 % (11.5-14.5) H Platelet Count 159 x10^3/uL (140-400) Neutrophils (%) (Auto) 71 % (31-73) Lymphocytes (%) (Auto) 18 % (24-48) L Monocytes (%) (Auto) 7 % (0-9) Eosinophils (%) (Auto) 3 % (0-3) Basophils (%) (Auto) 1 % (0-3) Neutrophils # (Auto) 4.4 x10^3uL (1.8-7.7) Lymphocytes # (Auto) 1.1 x10^3/uL (1.0-4.8) Monocytes # (Auto) 0.4 x10^3/uL (0.0-1.1) Eosinophils # (Auto) 0.2 x10^3/uL (0.0-0.7) Basophils # (Auto) 0.1 x10^3/uL (0.0-0.2) Sodium Level 142 mmol/L (136-145) Potassium Level 4.3 mmol/L (3.5-5.1) Chloride Level 104 mmol/L (98-107) Carbon Dioxide Level 30 mmol/L (21-32) Anion Gap 8 (6-14) Blood Urea Nitrogen 29 mg/dL (8-26) H Creatinine 1.7 mg/dL (0.7-1.3) H Estimated GFR (Cockcroft-Gault) 39.2 BUN/Creatinine Ratio 17 (6-20) Glucose Level 143 mg/dL (70-99) H Calcium Level 9.0 mg/dL (8.5-10.1) Total Bilirubin 0.7 mg/dL (0.2-1.0) Aspartate Amino Transferase (AST) 14 U/L (15-37) L Alanine Aminotransferase (ALT) 16 U/L (16-63) Alkaline Phosphatase 69 U/L (46-116) Total Protein 6.9 g/dL (6.4-8.2) Albumin 3.4 g/dL (3.4-5.0) Albumin/Globulin Ratio 1.0 (1.0-1.7) Current Medications: I have reviewed the current psychotropics carefully including drug interactions. Risk benefit ratio favors no change other than as noted in my dictated progress note. Diagnosis: Problems: (1) Anxiety disorder (2) Dementia in Alzheimer's disease with delusions (3) Dementia in Alzheimer's disease with depression (4) Dementia, vascular, with delusions (5) Dementia, vascular, with depression (6) Impulse control disorder (7) Major neurocognitive disorder JANIA GUZMÁN MD Feb 15, 2019 21:28
[2019-02-16] MEDS ORDERED: ACET325S PO (00:56)
[2019-02-16] MEDS ORDERED: CHOL500021 PO (00:57)
[2019-02-16] MEDS ORDERED: MAGN2400 PO (00:59)
[2019-02-16] MEDS ORDERED: MAG30ORA2 PO (00:59)
[2019-02-16] MEDS ORDERED: METH29OI TP (01:01)
[2019-02-16] MEDS ORDERED: MIRT15TA3 PO (01:02)
[2019-02-16] MEDS ORDERED: SERT25TA PO (01:03)
[2019-02-16] MEDS ORDERED: OLAN5TAB5 PO (01:03)
--- NOTE | 2019-02-16 01:40 | PN ---
DATE: 02/14/2019 This late entry, 02/14/2019, covers elements not covered in my initial note. SUBJECTIVE: I met with the patient evening of 02/14/2019. The patient slept 6-1/2 hours previous night. He remains confused, follows people around, but has not been aggressive. REVIEW OF SYSTEMS: No CV, , pulmonary, eye, ENT system symptoms on review, reliability poor. MENTAL STATUS EXAMINATION: Oriented to himself. Insight and judgment, recent and remote memory, attention, concentration, fund of knowledge poor, consistent with his diagnosis mentioned in my initial note. PLAN: No change from initial note. MAN Aryan GUZMÁN MD DR: ZAIRA/joe JOB#: [id number] / [id number]
[2019-02-16 05:45] VITALS: BP 135/76
[2019-02-16 08:26] VITALS: BP 135/76
[2019-02-16] MEDS: levETIRAcetam 500 MG TABLET PO SCH (08:26)
[2019-02-16] MEDS: LOSARTAN 50 MG TABLET. PO SCH (08:26)
[2019-02-16] MEDS: PANTOPRAZOLE 40 MG TABLET. PO SCH (08:26)
[2019-02-16] MEDS: amLODIPine BESYLATE 5 MG TABLET PO SCH (08:26)
[2019-02-16] MEDS ORDERED: SERTRALINE 100 MG TABLET. PO SCH (09:00)
--- NOTE | 2019-02-16 18:07 | PDOC ---
Exam Note: Derick Note: Please also refer to the separate dictated note~for this date of service dictated separately.~Patient seen individually. Discussed the patient with Nursing staff reviewed the chart.~Reviewed interim history and current functioning. Reviewed vital signs,~Labs/ Radiology~and current medications noted below. Continue current treatment with the changes noted in the dictated addendum note Assessment: Vital Signs/I&O: Vital Signs Date Time Temp Pulse Resp B/P (MAP) Pulse Ox O2 Delivery O2 Flow Rate FiO2 02/16/19 08:28 58 135/76 02/16/19 05:45 97.1 18 98 02/14/19 06:17 Room Air I & O 02/15/19 02/15/19 02/16/19 15:00 23:00 07:00 Intake Total 840 ml 0 ml 240 ml Balance 840 ml 0 ml 240 ml Current Medications: Meds: Current Medications Medications (Trade) Dose Ordered Sig/Zachary Route PRN Reason Start Time Stop Time Status Last Admin Dose Admin Sertraline HCl (Zoloft) 100 mg DAILY PO 02/16/19 09:00 02/16/19 10:48 DC 02/16/19 08:28 I have reviewed the current psychotropics carefully including drug interactions. Risk benefit ratio favors no change other than as noted in my dictated progress note. Diagnosis: Problems: (1) Anxiety disorder (2) Dementia in Alzheimer's disease with delusions (3) Dementia in Alzheimer's disease with depression (4) Dementia, vascular, with delusions (5) Dementia, vascular, with depression (6) Impulse control disorder (7) HTN (hypertension) (8) HLD (hyperlipidemia) (9) CKD (chronic kidney disease) (10) Vitamin D deficiency JANIA GUZMÁN MD Feb 16, 2019 18:07
--- NOTE | 2019-02-17 14:28 | OP ---
DATE OF SURGERY: 02/15/2019 This late entry 02/15/2019 covers elements not covered in my initial note. SUBJECTIVE: I met with the patient evening of 02/15/2019. The patient slept 7-3/4 hours previous night. He did well in the morning, remains confused, follows others around more so in the evening. His visited and he slept through the visit with her and then was resistive after the visit. Nursing staff feel visits with his seemed to bring back memories of the time when he was home, he gets more agitated and this persisted for a while, but by the time I saw him in the evening of 02/15/2019, he was doing well again behaviorally though he remained confused. He was tearful at dinnertime. No CV, , pulmonary, eye, ENT system symptoms on review. Reliability poor. MENTAL STATUS EXAMINATION: Oriented to himself. Insight, judgment, recent and remote memory, attention, concentration, fund of knowledge poor, consistent with his diagnosis mentioned in my initial note. PLAN: No change from initial note. Increase Zoloft from 75 mg a day to 100 mg a day after he has been on 75 mg for 3 days. Rest unchanged for now. Transition to assisted 02/16/2019. MAN Aryan GUZMÁN MD DR: ZAIRA/joe JOB#: [id number] / [id number]
--- NOTE | 2019-02-17 15:11 | PN ---
DATE: 02/15/2019 This late entry 02/15/2019 covers elements not covered in my initial note. SUBJECTIVE: I met with the patient evening of 02/15/2019. The patient slept 7-3/4 hours previous night. He did well in the morning, remains confused, follows others around more so in the evening. His visited and he slept through the visit with her and then was resistive after the visit. Nursing staff feel visits with his seemed to bring back memories of the time when he was home, he gets more agitated and this persisted for a while, but by the time I saw him in the evening of 02/15/2019, he was doing well again behaviorally though he remained confused. He was tearful at dinnertime. No CV, , pulmonary, eye, ENT system symptoms on review. Reliability poor. MENTAL STATUS EXAMINATION: Oriented to himself. Insight, judgment, recent and remote memory, attention, concentration, fund of knowledge poor, consistent with his diagnosis mentioned in my initial note. PLAN: No change from initial note. Increase Zoloft from 75 mg a day to 100 mg a day after he has been on 75 mg for 3 days. Rest unchanged for now. Transition to half-way 02/16/2019. JANIA GUZMÁN MD DR: ZAIRA/joe JOB#: [id number] / [id number]
--- NOTE | 2019-02-17 16:39 | DS ---
DATE OF DISCHARGE: 02/16/2019 DISCHARGE SUMMARY AND PSYCHIATRIC PROGRESS NOTE This late entry, 02/16/2019, covers elements not covered in my initial note of 02/16/2019. REASON FOR ADMISSION: Please refer to the admission history for details. Briefly, the patient is a 78-year-old male referred to us from home via the ER on account of increased aggression within the context of his dementia. Agitation has been worsening for the past few months. He threatened to kill the respite care helpers at home. His felt he was no longer safe being at home. She could not take care of him at home and he was hospitalized for psychiatric stabilization. SIGNIFICANT FINDINGS AND CLINICAL COURSE: Following admission, the patient was seen daily individually by myself from a psychiatric standpoint, medical followup with Dr. Prajapati. The patient remained confused, intermittently anxious, agitated, tearful at times, aggressive. Adjustments were made in his psychotropics. He seemed to respond to a combination of Zoloft increasing gradually to 100 mg a day and he remained on Keppra 500 mg b.i.d. for his seizure disorder; Zyprexa 2.5 mg q. 2 hours p.r.n. psychosis or agitation, max 10 mg in 24 hours; and Remeron 7.5 mg at bedtime. Gradually, mood appeared to improve. He was confused, but much more redirectable. REVIEW OF SYSTEMS: Prior to discharge on 02/16/2019, no CV, , pulmonary, eye, ENT system symptoms on review. Reliability poor. MENTAL STATUS EXAM: Oriented to himself. Insight, judgment, recent and remote memory, attention, concentration, fund of knowledge poor, consistent with his diagnoses. FINAL DIAGNOSES: Major neurocognitive disorder, Alzheimer, vascular with delusion, depression, behavioral disturbance; anxiety disorder, unspecified; impulse control disorder, unspecified. Rest unchanged from admission. DISCHARGE MEDICATIONS: Please refer to the [facility]. DISCHARGE INSTRUCTIONS: Outpatient psychiatric and medical followup at the longterm. MAN Aryan GUZMÁN MD DR: ZAIRA/joe JOB#: [id number] / [id number]
== END 2019-02-16 10:10 | DRG 57 ==
LOC: ER 14:28 → GEROPSY 20:28 → ER 21:04
PROVIDERS: ADMIT Psychiatry & Neurology Psychiatry; ATTEND Psychiatry & Neurology Psychiatry
DX: G30.9 Alzheimer's disease, unspecified (principal); F02.81 Dementia in other diseases classified elsewhere, unspecified severity, with behavioral disturbance; F41.9 Anxiety disorder, unspecified; F63.9 Impulse disorder, unspecified; F01.50 Vascular dementia, unspecified severity, without behavioral disturbance, psychotic disturbance, mood disturbance, and anxiety; F02.80 Dementia in other diseases classified elsewhere, unspecified severity, without behavioral disturbance, psychotic disturbance, mood disturbance, and anxiety; F32.9 Major depressive disorder, single episode, unspecified; I10 Essential (primary) hypertension; E55.9 Vitamin D deficiency, unspecified; E66.9 Obesity, unspecified; E78.00 Pure hypercholesterolemia, unspecified; E78.5 Hyperlipidemia, unspecified; G40.909 Epilepsy, unspecified, not intractable, without status epilepticus; I12.9 Hypertensive chronic kidney disease with stage 1 through stage 4 chronic kidney disease, or unspecified chronic kidney disease; N18.9 Chronic kidney disease, unspecified; Z86.73 Personal history of transient ischemic attack (TIA), and cerebral infarction without residual deficits; K21.9 Gastro-esophageal reflux disease without esophagitis; F29 Unspecified psychosis not due to a substance or known physiological condition
CPT/HCPCS: 36415; 70450; 80053; 80061; 81001; 82306; 83036; 83540; 83550; 83735; 84436; 84443; 84480; 85025; 86592; 93005; 99285-25